=== PATIENT | female | born 1985 | race Caucasian/White ===

== ENCOUNTER 2019-07-24 13:37 | Emergency (ER) | payer OTHER, SELFPAY ==
[~2019-07-24] VITALS: Ht 157.5 cm; Wt 65.3 kg
[2019-07-24 13:39] VITALS: BP 107/77
--- NOTE | 2019-07-24 13:55 | NUR ---
PT TO ED FOR MIGRAINE WITH ASSOCIATED N/V AND LIGHT/SOUND SENSITIVITY SINCE LAST NIGHT. PT ACTIVELY VOMITING. PT CONNECTED TO MONITORS. VSS. DR. CARRASQUILLO TO BS FOR ASSESSMENT. AWAITING ORDERS.
[2019-07-24] MEDS ORDERED: DIPHENHYDRAMINE 50 MG/ML, 1ML IVPush ONE (14:00)
[2019-07-24] MEDS ORDERED: KETOROLAC 30 MG/1 ML IVPush ONE (14:00)
[2019-07-24] MEDS ORDERED: SODIUM CHLORIDE FLUSH 10ML SYR IVF ONE (14:00)
[2019-07-24] MEDS ORDERED: METOCLOPRAMIDE 5 MG/ML, 2ML IVPush ONE (14:00)
[2019-07-24] MEDS ORDERED: SODIUM CHLORIDE 0.9% 1,000ML IVBOLUS ONE (14:00)
[2019-07-24] MEDS ORDERED: DIPHENHYDRAMINE 50 MG/ML, 1ML ONE (14:06)
[2019-07-24] MEDS ORDERED: METOCLOPRAMIDE 5 MG/ML, 2ML ONE (14:06)
[2019-07-24] MEDS ORDERED: KETOROLAC 30 MG/1 ML ONE (14:06)
--- NOTE | 2019-07-24 14:15 | NUR ---
pt resting in room. vss. piv established and ivf started. pt medicated per mar. no further n/v noted. pt appreciative.
[2019-07-24] MEDS ORDERED: DEXAMETHASONE 4 MG/ML, 5ML ONE (15:11)
[2019-07-24] MEDS ORDERED: DEXAMETHASONE 4 MG/ML, 1ML IVPush ONE (15:30)
== END 2019-07-24 15:28 | disposition home or self-care (01) ==
LOC: ED 15:00
DX: G43.019 Migraine without aura, intractable, without status migrainosus (principal)
CPT/HCPCS: 96361; 96374; 96375; 99283; J1100; J1200; J1885; J2765; J7030